=== PATIENT | male | born 1950 | race Caucasian/White ===

== ENCOUNTER 2017-03-15 05:05 | Outpatient (CLI) | payer BC | END 2017-03-15 23:59 | disposition home or self-care (01) | LOC: DIABETIC 05:05 | PROVIDERS: ATTEND Specialist | DX: E11.9 Type 2 diabetes mellitus without complications (principal) | CPT/HCPCS: G0108 ==

== ENCOUNTER 2017-05-31 04:43 | Outpatient (CLI) | payer BC | END 2017-05-31 23:59 | disposition home or self-care (01) | LOC: DIABETIC 04:43 | PROVIDERS: ATTEND Specialist | DX: E11.9 Type 2 diabetes mellitus without complications (principal) | CPT/HCPCS: G0108 ==

== ENCOUNTER 2017-09-06 05:13 | Outpatient (CLI) | payer BC | END 2017-09-06 23:59 | disposition home or self-care (01) | LOC: DIABETIC 05:13 | PROVIDERS: ATTEND Specialist | DX: E11.9 Type 2 diabetes mellitus without complications (principal) | CPT/HCPCS: G0108 ==

== ENCOUNTER 2017-12-13 05:17 | Outpatient (CLI) | payer BC | END 2017-12-13 23:59 | disposition home or self-care (01) | LOC: DIABETIC 05:17 | PROVIDERS: ATTEND Specialist | DX: E11.9 Type 2 diabetes mellitus without complications (principal); Z79.899 Other long term (current) drug therapy | CPT/HCPCS: G0108 ==

== ENCOUNTER 2018-03-28 03:46 | Outpatient (CLI) | payer BC | END 2018-03-28 23:59 | disposition home or self-care (01) | LOC: DIABETIC 03:46 | PROVIDERS: ATTEND Specialist | DX: E11.65 Type 2 diabetes mellitus with hyperglycemia (principal); Z79.84 Long term (current) use of oral hypoglycemic drugs | CPT/HCPCS: G0108 ==

== ENCOUNTER 2018-06-27 04:59 | Outpatient (CLI) | payer BC | END 2018-06-27 23:59 | disposition home or self-care (01) | LOC: DIABETIC 04:59 | PROVIDERS: ATTEND Specialist | DX: E11.65 Type 2 diabetes mellitus with hyperglycemia (principal); Z79.84 Long term (current) use of oral hypoglycemic drugs | CPT/HCPCS: G0108 ==